=== PATIENT | male | born 1970 | race Two or more races ===

== ENCOUNTER 2017-03-19 19:22 | Emergency (ER) | payer SELFPAY ==
[2017-03-19 19:59] LABS: ADD MAN DIFF? NO
[2017-03-19 20:03] LABS: BILIRUBIN,URINE NEGATIVE (NEG); CLARITY,URINE CLEAR; COLOR,URINE YELLOW; GLUCOSE,URINE NEGATIVE (NEG); NITRITE,URINE NEGATIVE (NEG); PH,URINE 7.5; PROTEIN,URINE NEGATIVE (NEG-TRACE)
[2017-03-19 20:06] LABS: BASO % 1 % (0-3); EOS # 0.1 x10^3/uL (0.0-0.7); EOS % 1 % (0-3); HEMATOCRIT 44.7 % (39.0-53.0); HEMOGLOBIN 15.2 g/dL (13.0-17.5); LYMPH # 0.9 x10^3/uL (1.0-4.8); LYMPH % 13 % (24-48); MEAN CORPUSCULAR HEMOGLOBIN 31 pg (25-35); MEAN CORPUSCULAR HGB CONC 34 g/dL (31-37); MEAN CORPUSCULAR VOLUME 91 fL (79-100); MONO # 1.1 x10^3/uL (0.0-1.1); MONO % 16 % (0-9); NEUT % 70 % (31-73); PLATELET COUNT 168 x10^3/uL (140-400); WHITE BLOOD COUNT 7.2 x10^3/uL (4.0-11.0)
[2017-03-19 20:09] LABS: ANION GAP 10 (6-14); BLOOD UREA NITROGEN 16 mg/dL (8-26); BUN/CREATININE RATIO 16 (6-20); CALCIUM 9.5 mg/dL (8.5-10.1); CARBON DIOXIDE 27 mmol/L (21-32); CHLORIDE 99 mmol/L (98-107); GFR 80.1; GLUCOSE 102 mg/dL (70-99); POTASSIUM 3.5 mmol/L (3.5-5.1); SODIUM 136 mmol/L (136-145)
[2017-03-19] MEDS: IV NORMAL SALINE 1000ML BAG 1,000 ML IV ×2 (20:15)
[2017-03-19] MEDS: KETOROLAC 30 MG/ML INJ. IV ×2 (20:15)
[2017-03-19 20:16] LABS: ALBUMIN 4.3 g/dL (3.4-5.0); ALK PHOS 67 U/L (46-116); ALT (SGPT) 55 U/L (16-63); AST (SGOT) 29 U/L (15-37); TOTAL BILIRUBIN 0.5 mg/dL (0.2-1.0); TOTAL PROTEIN 8.6 g/dL (6.4-8.2)
[2017-03-19 20:18] LABS: BACTERIA,URINE 0 /HPF (0-FEW); RBC,URINE 0 /HPF (0-2); WBC,URINE 0 /HPF (0-4)
== END 2017-03-19 21:42 | disposition home or self-care (01) ==
LOC: ER 19:22
DX: N20.0 Calculus of kidney (principal)
CPT/HCPCS: 36415; 74176; 80053; 81001; 85025; 96361; 96374; 99285-25; J1885; J7030

== ENCOUNTER 2021-01-06 04:19 | Emergency (ER) | payer SELFPAY ==
[~2021-01-06] VITALS: Ht 177.8 cm; Wt 86.0 kg
[2021-01-06 04:42] VITALS: BP 179/84
[2021-01-06 04:50] LABS: BILIRUBIN,URINE NEGATIVE (NEG); CLARITY,URINE CLOUDY; COLOR,URINE YELLOW; NITRITE,URINE NEGATIVE (NEG); PROTEIN,URINE NEGATIVE (NEG-TRACE)
[2021-01-06] MEDS ORDERED: IV NORMAL SALINE 1000ML BAG 1,000 ML IV ONE (05:00)
[2021-01-06] MEDS ORDERED: KETOROLAC 30 MG/ML VIAL. IVP ONE (05:00)
--- NOTE | 2021-01-06 05:11 | PHYS DOC ---
Past Medical History Past Medical History: No Pertinent History Past Surgical History: Other Additional Past Surgical Histo: RIGHT FINGERS-PARTIAL AMPUTATION Smoking Status: Never Smoker Alcohol Use: None Drug Use: None General Adult EDM: Chief Complaint: FLANK PAIN HPI: HPI: Patient is a 50 year old male presents with a chief complaint of right flank pain. Onset of flank pain this a.m. Patient states pain does not radiate. He states he has associated suprapubic discomfort and decreased urinary output. Patient denies any associated nausea vomiting or diarrhea. Review of Systems: Review of Systems: Constitutional: Denies fever or chills. [] Eyes: Denies change in visual acuity. [] HENT: Denies nasal congestion or sore throat. [] Respiratory: Denies cough or shortness of breath. [] Cardiovascular: Denies chest pain or edema. [] GI: Denies abdominal pain, nausea, vomiting, bloody stools or diarrhea. [] : Denies dysuria. [Positive flank pain positive decreased urine output] Musculoskeletal: Denies back pain or joint pain. [] Integument: Denies rash. [] Neurologic: Denies headache, focal weakness or sensory changes. [] Endocrine: Denies polyuria or polydipsia. [] Lymphatic: Denies swollen glands. [] Psychiatric: Denies depression or anxiety. [] Heart Score: C/O Chest Pain: N/A Risk Factors: Risk Factors: DM, Current or recent (<one month) smoker, HTN, HLP, family history of CAD, obesity. Risk Scores: Score 0 - 3: 2.5% MACE over next 6 weeks - Discharge Home Score 4 - 6: 20.3% MACE over next 6 weeks - Admit for Clinical Observation Score 7 - 10: 72.7% MACE over next 6 weeks - Early Invasive Strategies Current Medications: Current Medications Medications (Trade) Dose Ordered Sig/Karley Start Time Stop Time Status Last Admin Dose Admin Ketorolac Tromethamine (Toradol 30mg Vial) 30 mg 1X ONCE 01/06/21 05:00 01/06/21 05:01 DC Sodium Chloride 1,000 ml @ 1,000 mls/hr 1X ONCE 01/06/21 05:00 01/06/21 05:59 Allergies: Allergies: Allergies Coded Allergies Type Severity Reaction Last Updated Verified No Known Drug Allergies 06/02/15 No Physical Exam: PE: Constitutional: Well developed, well nourished, no acute distress, non-toxic appearance. [] HENT: Normocephalic, atraumatic, bilateral external ears normal, oropharynx moist, no oral exudates, nose normal. [] Eyes: PERRLA, EOMI, conjunctiva normal, no discharge. [] Neck: Normal range of motion, no tenderness, supple, no stridor. [] Cardiovascular:Heart rate regular rhythm, no murmur [] Lungs & Thorax: Bilateral breath sounds clear to auscultation [] Abdomen: Bowel sounds normal, soft, no tenderness, no masses, no pulsatile mass es. [] Skin: Warm, dry, no erythema, no rash. [] Back: No tenderness, no CVA tenderness. [] Extremities: No tenderness, no cyanosis, no clubbing, ROM intact, no edema. [] Neurologic: Alert and oriented X 3, normal motor function, normal sensory function, no focal deficits noted. [] Psychologic: Affect normal, judgement normal, mood normal. [] Current Patient Data: Vital Signs: Vital Signs Date Time Temp Pulse Resp B/P (MAP) Pulse Ox O2 Delivery O2 Flow Rate FiO2 01/06/21 04:35 97.8 62 18 176/77 (110) 100 Room Air 97.8 EKG: EKG: [] Radiology/Procedures: Radiology/Procedures: [] Course & Med Decision Making: Course & Med Decision Making Pertinent Labs and Imaging studies reviewed. (See chart for details) [] Patient was evaluated for chief complaint. Work-up consisted of labs and radiologic imaging. Patient found to have an 5 mm stone at the right UVJ. Treatment included IV fluids Toradol and Flomax. Patient states pain is resolved. Patient will be discharged home with prescription Flomax and hydroc odone. He will be referred to urology. Zora Disclaimer: Zora Disclaimer: This electronic medical record was generated, in whole or in part, using a voice recognition dictation system. Departure Departure Impression: Primary Impression: Flank pain Additional Impression: Kidney stone Disposition: HOME / SELF CARE / HOMELESS Condition: STABLE Referrals: NO PCP (PCP) CHITO DAILEY MD Patient Instructions: Flank Pain, Kidney Stones Scripts Hydrocodone/Acetaminophen (Hydrocodone-Acetamin 5-325 mg) 1 Each Tablet 1 EACH PO Q4-6HRS, #14 TAB Prov: FAVIOLA KUMAR DO 01/06/21 Tamsulosin Hcl (FLOMAX) 0.4 Mg Cap.er.24h 0.4 MG PO DAILY, #14 TAB Prov: FAVIOLA KUMAR DO 01/06/21 FAVIOLA KUMAR DO Jan 06, 2021 05:10
[2021-01-06 05:20] LABS: BACTERIA,URINE FEW /HPF (0-FEW); WBC,URINE RARE /HPF (0-4)
--- NOTE | 2021-01-06 05:27 | RAD ---
CT ABDOMEN+PELVIS WO History: Right flank pain. Comparison: CT abdomen and pelvis 03/19/2017 Technique: CT of the abdomen and pelvis without contrast. Findings: There is a 5 mm stone at the right ureterovesicular junction causing moderate right hydronephroureter . No nephrolithiasis bilaterally. No left hydronephrosis. Calcified granuloma in the lingula. No airspace consolidation. The liver, gallbladder, pancreas, sple en and adrenal glands are unremarkable. The stomach, small bowel, appendix and colon are unremarkable . Aortoiliac atherosclerotic calcification without aneurysm. Moderate fat-containing umbilical hernia . Osseous structures are unremarkable. Impression: 1. Right ureterovesicular junction stone measuring 5 mm causing moderate right hydronephroureter. ------ Exposure: One or more of the following individualized dose reduction techniques were utilized for thi s examination: 1. Automated exposure control 2. Adjustment of the mA and/or kV according to patient size 3. Use of iterative reconstruction technique. Electronically signed by: Horacio Garcia MD (01/06/2021 5:24 AM) [facility]
[2021-01-06 05:42] LABS: CALCIUM 8.8 mg/dL (8.5-10.1); CREATININE 1.1 mg/dL (0.7-1.3); GFR 70.6
[2021-01-06 05:48] LABS: ALBUMIN 3.8 g/dL (3.4-5.0); TOTAL BILIRUBIN 0.4 mg/dL (0.2-1.0); TOTAL PROTEIN 7.5 g/dL (6.4-8.2)
[2021-01-06] MEDS ORDERED: TAMS0.4C97 PO (05:48)
[2021-01-06] MEDS ORDERED: HYDR-2759 PO (05:48)
[2021-01-06] MEDS ORDERED: TAMSULOSIN 0.4 MG CAP.ER.24H. PO ONE (06:00)
== END 2021-01-06 06:05 | disposition home or self-care (01) ==
LOC: ER 04:19
DX: N20.0 Calculus of kidney (principal)
CPT/HCPCS: 36415; 74176; 80053; 81001; 96361; 96374; 99284; J1885; J7030